=== PATIENT | male | born 1955 | race African-American/Black ===

== ENCOUNTER 2021-11-26 17:59 | Emergency (ER) | payer BC ==
[~2021-11-26] VITALS: Ht 175.3 cm; Wt 86.0 kg
[2021-11-26 18:25] VITALS: BP 137/68
== END 2021-11-26 19:04 | disposition left against medical advice (07) ==
LOC: ER 17:59
DX: Z53.21 Procedure and treatment not carried out due to patient leaving prior to being seen by health care provider (principal)

== ENCOUNTER 2023-07-26 02:39 | Emergency (ER) | payer BC, OTHER ==
[~2023-07-26] VITALS: Ht 180.3 cm; Wt 86.0 kg
[2023-07-26 02:51] VITALS: O2SAT 98
[2023-07-26] MEDS ORDERED: ENAL10TA71 MT (05:40)
[2023-07-26 06:01] VITALS: BP 118/57; PULSE 56; RESP 16; TEMP 98.2
== END 2023-07-26 06:03 | disposition home or self-care (01) ==
LOC: ER 02:39
DX: I10 Essential (primary) hypertension (principal)
CPT/HCPCS: 99283